=== PATIENT | female | born 1995 | race Two or more races ===

== ENCOUNTER 2018-12-16 00:30 | Emergency (ER) | payer OTHER ==
[2018-12-16] MEDS ORDERED: NS 1,000 ML IV ONE (00:36)
--- NOTE | 2018-12-16 00:38 | EDPHY ---
H & P Source: Patient, EMS Time Seen by Provider: 12/16/18 00:36 HPI/ROS: HPI CHIEF COMPLAINT: M1 hold by police. Depression, suicidal ideation. HISTORY OF PRESENT ILLNESS: 23-year-old female presents emergency room by EMS on M1 hold by [employer]. She has been feeling depressed. She states tonight around 10:00 p.m. She took 2 doses of Tylenol she is unsure of the strength. Also took 4 tablets of Motrin. Also took 4 tablets of melatonin. She states she did for SI She arrives to the emergency in no acute distress, denies any complaints at this time but is depressed. Flat affect. Past Medical History: Depression. Not treated. Past Surgical History: No recent surgery Social History: [employer] student. Denies drugs alcohol tobacco. Family History: Noncontributory ROS REVIEW OF SYSTEMS: 10 Systems were reviewed and negative with the exception of the elements mentioned in the history of present illness. Exam Constitutional depressed, nontoxic, triage nursing summary reviewed, vital signs reviewed, awake/alert. Eyes normal conjunctivae and sclera, EOMI, PERRLA. HENT normal inspection, atraumatic, moist mucus membranes, no epistaxis, neck supple/ no meningismus, no raccoon eyes. Respiratory clear to auscultation bilaterally, normal breath sounds, no respiratory distress, no wheezing. Cardiovascular rate normal, regular rhythm, no murmur, no edema, distal pulses normal. Gastrointestinal soft, non-tender, no rebound, no guarding, normal bowel sounds, no distension, no pulsatile mass. Genitourinary no CVA tenderness. Musculoskeletal no midline vertebral tenderness, full range of motion, no calf swelling, no tenderness of extremities, no meningismus, good pulses, neurovascularly intact. Skin pink, warm, & dry, no rash, skin atraumatic. Neurologic awake, alert and oriented x 3, AAOx3, moves all 4 extremities equally, motor intact, sensory intact, CN II-XII intact, normal cerebellar, normal vision, normal speech. Psychiatric flat affect, depressed, suicidal. Heme/Lymph/Immune no lymphadenopathy. Differential Diagnosis: Includes but is not limited to in a particular order underlying depression, mood disorder, suicidal ideation, overdose Medical Decision Making: Plan for this patient IV establishment IV fluid bolus , patient on M1 hold but she will need medical clearance 1st. Check salicylate level, Tylenol level, basic blood work, LFTs. Re-evaluate. Re-evaluation: 0725: Signed over Dr. Harrington. Patient pending Mental health eval. (Bryce Marie) Constitutional: Initial Vital Signs Temperature (C) 36.6 C 12/16/18 00:51 Heart Rate 73 12/16/18 00:51 Respiratory Rate 18 12/16/18 00:51 Blood Pressure 116/71 12/16/18 00:51 O2 Sat (%) 97 12/16/18 00:51 O2 Delivery Mode Room Air Allergies/Adverse Reactions: No Known Allergies Allergy (Unverified 12/16/18 00:49) Home Medications: Medication Instructions Recorded NK [No Known Home Meds] 12/16/18 Medical Decision Making Other Provider: I assumed care of this patient at 7:[address] Bryce Marie. We are waiting for an evaluation from mental health. Patient seen and evaluated by Kevin from EPS. Patient will be admitted to [address] [place] [address] Stallworth accepting physician. (Annabel Harrington) - Data Points Laboratory Results: Laboratory Results 12/16/18 00:59 12/16/18 00:59 12/16/18 12/16/18 12/16/18 05:00 02:40 00:59 WBC RBC Hgb Hct MCV MCH MCHC RDW Plt Count MPV Neut % (Auto) Lymph % (Auto) Dickens % (Auto) Eos % (Auto) Baso % (Auto) Nucleat RBC Rel Count Absolute Neuts (auto) Absolute Lymphs (auto) Absolute Monos (auto) Absolute Eos (auto) Absolute Basos (auto) Absolute Nucleated RBC Immature Gran % Immature Gran # Sodium Potassium Chloride Carbon Dioxide Anion Gap BUN Creatinine Estimated GFR Glucose Calcium Total Bilirubin Conjugated Bilirubin Unconjugated Bilirubin AST ALT Alkaline Phosphatase Total Protein Albumin Beta HCG, Qual NEGATIVE Salicylates Urine Opiates Screen NEGATIVE (NEGATIVE) Acetaminophen < 10 mcg/mL L mcg/mL (10-30) Urine Barbiturates NEGATIVE (NEGATIVE) Ur Phencyclidine Scrn NEGATIVE (NEGATIVE) Ur Amphetamine Screen NEGATIVE (NEGATIVE) U Benzodiazepines Scrn NEGATIVE (NEGATIVE) Urine Cocaine Screen NEGATIVE (NEGATIVE) U Marijuana (THC) Screen NEGATIVE (NEGATIVE) Ethyl Alcohol 12/16/18 12/16/18 00:59 00:59 WBC 8.00 10^3/uL 10^3/uL (3.80-9.50) RBC 4.47 10^6/uL 10^6/uL (4.18-5.33) Hgb 13.1 g/dL g/dL (12.6-16.3) Hct 39.8 % % (38.0-47.0) MCV 89.0 fL fL (81.5-99.8) MCH 29.3 pg pg (27.9-34.1) MCHC 32.9 g/dL g/dL (32.4-36.7) RDW 14.0 % % (11.5-15.2) Plt Count 254 10^3/uL 10^3/uL (150-400) MPV 9.6 fL fL (8.7-11.7) Neut % (Auto) 65.8 % % (39.3-74.2) Lymph % (Auto) 23.6 % % (15.0-45.0) Dickens % (Auto) 8.6 % % (4.5-13.0) Eos % (Auto) 1.8 % % (0.6-7.6) Baso % (Auto) 0.1 % L % (0.3-1.7) Nucleat RBC Rel Count 0.0 % % (0.0-0.2) Absolute Neuts (auto) 5.26 10^3/uL 10^3/uL (1.70-6.50) Absolute Lymphs (auto) 1.89 10^3/uL 10^3/uL (1.00-3.00) Absolute Monos (auto) 0.69 10^3/uL 10^3/uL (0.30-0.80) Absolute Eos (auto) 0.14 10^3/uL 10^3/uL (0.03-0.40) Absolute Basos (auto) 0.01 10^3/uL L 10^3/uL (0.02-0.10) Absolute Nucleated RBC 0.00 10^3/uL 10^3/uL (0-0.01) Immature Gran % 0.1 % % (0.0-1.1) Immature Gran # 0.01 10^3/uL 10^3/uL (0.00-0.10) Sodium 141 mEq/L mEq/L (135-145) Potassium 4.0 mEq/L mEq/L (3.5-5.2) Chloride 112 mEq/L H mEq/L (97-110) Carbon Dioxide 21 mEq/l L mEq/l (22-31) Anion Gap 8 mEq/L mEq/L (6-14) BUN 14 mg/dL mg/dL (7-23) Creatinine 0.6 mg/dL mg/dL (0.6-1.0) Estimated GFR > 60 Glucose 97 mg/dL mg/dL (70-100) Calcium 9.7 mg/dL mg/dL (8.5-10.4) Total Bilirubin 0.4 mg/dL mg/dL (0.1-1.4) Conjugated Bilirubin 0.4 mg/dL mg/dL (0.0-0.5) Unconjugated Bilirubin 0.0 mg/dL mg/dL (0.0-1.1) AST 22 IU/L IU/L (14-46) ALT 15 IU/L IU/L (9-52) Alkaline Phosphatase 66 IU/L IU/L (38-126) Total Protein 7.1 g/dL g/dL (6.3-8.2) Albumin 4.2 g/dL g/dL (3.5-5.0) Beta HCG, Qual Salicylates < 1.0 mg/dL L mg/dL (2.0-20.0) Urine Opiates Screen Acetaminophen 10 mcg/mL mcg/mL (10-30) Urine Barbiturates Ur Phencyclidine Scrn Ur Amphetamine Screen U Benzodiazepines Scrn Urine Cocaine Screen U Marijuana (THC) Screen Ethyl Alcohol < 10 mg/dL mg/dL (0-10) Medications Given: Discontinued Medications Sodium Chloride (Ns) 1,000 mls @ 0 mls/hr IV ONCE ONE PRN Reason: Wide Open Stop: 12/16/18 00:37 Last Admin: 12/16/18 00:58 Dose: 1,000 mls Departure - Departure Clinical Impression: Depression Condition: Fair Referrals: Patient,NotPresent [Unknown] - As per Instructions
[2018-12-16 01:13] LABS: PLATELET COUNT 254 10^3/uL (150-400)
[2018-12-16 11:36] VITALS: BP 110/80
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
--- NOTE | 2018-12-16 11:44 | ASMTTCLDSP ---
TLC Discharge Disposition Disposition: Answers: Admit Disposition Notes: Notes: Admit 3N. Discharge Concerns/Recommendations: Notes: In consultation with [facility] ED physician, Annabel Harrington MD and on-call psychiatrist, Myles Stallworth MD, both concurred that pt appears to meet 27-65 criteria requiring psychiatric hospitalization as pt appears to be at risk of harm to self due to a mental illness condition. Pt was given the 3N prohibited belongings list while in the ED. Was patient given the Answers: Yes Inpatient Behavioral Health Prohibited Belongings List while in the ED? For inpatient Myles Stallworth MD admission, the following psychiatrist agreed to accept patient for admission to Behavioral Health ([facility]): Type of Hold: Answers: M1/72-hour Hold Hold initiated by: Answers: Police Date Signed: 12/16/2018 11:44 AM Electronically Signed By:Kevin Quiroz
--- NOTE | 2018-12-16 12:24 | PDCONSULT ---
Optical Effects Line Up Person Note: Patient is a 23-year-old female with no past medical history who presented to the ER with some concerns of suicidal ideation. She tells me that she started her period yesterday and was having some discomfort and so took 2 Tylenol, for Advil, and for melatonin gummies. She said she was not sure if she wanted to hurt herself but she thinks she might have. She seems conflicted about this. She says that she does not have any current abdominal pain, nausea, vomiting, cough, fevers, chills or other symptoms. 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 She takes no regular medications and has no medical problems. Past medical history None Past surgical history She could not elaborate but had some sort of orthopedic surgery on her left arm due to a deformity Social history Does not smoke Occasional alcohol Smokes marijuana about once a week Family history None that she knows of Allergies No known drug allergies Current medications Occasional multivitamin Objective Vital signs, blood pressure 101/59, heart rate 87, respiratory rate 16 ,oxygen saturation 97% on room air Physical exam General 23-year-old girl appears calm and in no acute distress HEENT-pupils are equal round reactive to light and accommodation, mucous members are moist pink and acyanotic, extraocular muscles intact Lungs-clear to auscultation bilaterally CV-regular rhythm and rate no murmurs rubs gallops no pedal edema GI-positive bowel sounds soft nontender no guarding or rebound no organomegaly -no CVA tenderness Extremities no clubbing cyanosis edema or calf pain Skin-no rashes or ecchymosis Neuro-cranial nerves 2-12 grossly intact no focal neurological deficits, alert and oriented x3 Psych-appears calm, appropriate and with normal mood and affect Assessment plan 23-year-old female with no past medical history admitted with concern for suicidal ideation after taking 2 Tylenol, 800 mg of Advil, and four melatonin gummy bears. The patient has normal vital signs, all labs are within normal limits under examination is reassuring. Tylenol level is undetectable, salicylate level is also undetectable and urine tox screen was negative. She did mention that in her past she was told that she had a mildly abnormal thyroid test and that yesterday she thought maybe her anxiety was related to her thyroid. Given that it would be reasonable to check a TSH to ensure that she does not have underlying hyperthyroidism. Otherwise the patient is cleared medically. Suicidal ideation to be assessed and managed by Psychiatry. Patient is on an M1 hold.
== END 2018-12-16 12:02 ==
DX: F32.9 Major depressive disorder, single episode, unspecified (principal)
CPT/HCPCS: 80305; G0480

== ENCOUNTER 2018-12-16 12:20 | Inpatient (IN) | payer OTHER ==
--- NOTE | 2018-12-16 13:22 | ASMTBHMTP ---
Master Treatment Plan Master Treatment Plan Answers: Depressed Mood with for: Suicidal Ideation Date: 12/16/2018 Diagnosis on Admission: Unavailable Expected length of stay: 3 Reason for admission: Notes: The patient stated, "I was scared. I was stressed. I called [facility], they called the police, and I was admitted to the hospital overnight. I don't have words. I don't have anything anymore." The patient denied current suicidal ideation although she rated herself 3-4/10. The patient reported a passive plan: "I hope a car would hit me." She presented as labile and tearful. According the [facility] TLC Evaluation, the patient attempted overdose. The patient didn't endorse A/VH although she clarified that she hears her "mind." Patient's stated presenting problems: Notes: The patient reported that her parent's are going through a divorce, she was recently terminated from her sponsorship to study in [place], and she can't financially afford her tuition. She reported that her sponsorship was terminated because she under performed academically. The patient clarified that her under performance corresponded with her father's decline in health resulting in his open heart surgery. The patient believes that it is "sincerely unfair" that her sponsorship would be terminated for these reasons. Patient's goals for treatment: Notes: The patient would like to discharge; she believes she was "mistakenly" admitted. The patient will participate in programming including attending groups, sleep 6-8 hours per day, and complete three meals per day. Patient's strengths: Notes: The patient stated, "I'm strong." Identify supports outside of hospital: Notes: The patient identified her mother, sister, aunt, and peers as supports outside of the hospital. The patient utilizes therapy services at [facility] Discharge criteria: Notes: Suicidal ideation will resolve and the patient will have a plan to safely manage recurrent suicidal ideation. Initial disposition plan/considerations: Notes: The patient will return to her residence in [place], [place]. She has an upcoming appointment with her therapist at [facility] on December 20 @ 12:30. Master Treatment Plan Required Signatures Psychiatrist signature: Answers: Psychiatrist: RN on-shift signature: Answers: RN: Patient signature: Answers: Patient: Date Signed: 12/16/2018 01:21 PM Electronically Signed By:Alisha Bettencourt
[2018-12-16] MEDS ORDERED: LORazepam 0.5 MG TAB PO PRN (16:07)
[2018-12-16] MEDS ORDERED: ACETAMINOPHEN 325 MG TAB PO PRN (16:07)
[2018-12-16] MEDS ORDERED: MAG HYDROX/AL HYDROX/SIMETH 30 ML UDCUP PO PRN (16:07)
[2018-12-16] MEDS ORDERED: MAGNESIUM HYDROXIDE 30 ML UDCUP PO PRN (16:07)
[2018-12-16] MEDS ORDERED: NICOTINE POLACRILEX 2 MG GUM B PRN (16:07)
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
--- NOTE | 2018-12-17 14:12 | ASMTCMCOM ---
CM Note CM Note Notes: Pt. reports feeling "good". Pt. stated she "slept good" adding she had a cough that woke her up. Pt. stated she is getting enough food on her trays, but that she is "too picky". CC offered pt. options around her meals and selecting her meals. Pt. reports she does not take any medications. Pt. reports attending groups. Pt. reports the unit being "scary". Pt. denied SI, HI, AVH and paranoia. Pt. stated "cannot ignore I will be in danger" about her current situation. Pt. shared that her uncle is working with [employer] to prove the pt has the financial means to pay for college in the [place] Pt. presents as alert, mostly calm, a bit nervous at times, polite, good eye contact, groomed, and cooperative. Staff report pt. sleeping 8 hours and completing both a wellness and safety plan. Pt. has follow up appointments with [facility] (12/21 @ 11) and the office of [facility]im[facility] (12/20 @12:30) Date Signed: 12/17/2018 02:11 PM Electronically Signed By:Racquel Grey
--- NOTE | 2018-12-17 17:13 | PDMN ---
Medical Necessity Medical necessity: Pt meets inpt criteria per MD order and [facility], Anxiety Disorders (excluding Posttraumatic Stress Disorder), Adult: Inpatient Care, 2 days. 23 y/o admitted w/adjustment disorder w/mixed disturbance of emotions and conduct, on M1 hold due to risk of harm to self/recent suicidal ideation requires inpt psychiatric hospitalization.
[2018-12-17] MEDS ORDERED: MELATONIN 3 MG TAB PO PRN (20:56)
[2018-12-18 07:00] VITALS: BP 110/68
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
== END 2018-12-18 16:00 | disposition home or self-care (01) | DRG 882 ==
LOC: BBEH 12:20
PROVIDERS: ADMIT Psychiatry & Neurology Psychiatry; ATTEND Psychiatry & Neurology Psychiatry
DX: F43.25 Adjustment disorder with mixed disturbance of emotions and conduct (principal); R45.851 Suicidal ideations